=== PATIENT | female | born 1945 | race Caucasian/White ===

== ENCOUNTER 2021-09-02 16:24 | Inpatient (IN) ==
[2021-09-02] MEDS ORDERED: IOPAMIDOL 100 ML BOTTLE IV ONE (16:25)
[2021-09-02 18:33] LABS: Basophils # (Auto) 0.04 K/mcL (0.00-0.30); Basophils % (Auto) 0.4 % (0.0-2.0); Eosinophils # (Auto) 0.09 K/mcL (0.00-0.70); Eosinophils % (Auto) 0.8 % (0.0-7.0); Hematocrit 44.6 % (34.1-44.9); Lymphocytes # (Auto) 1.53 K/mcL (1.50-4.80); Mean Cell Volume 85.1 fL (80.0-100.0); Mean Corpuscular HGB Conc 33.6 g/dL (31.0-36.0); Mean Platelet Volume 10.8 fL (7.4-10.4); Monocytes # (Auto) 1.14 K/mcL (0.10-0.90); Monocytes % (Auto) 10.4 % (1.0-12.0); Neutrophils % (Auto) 74.4 % (38.0-78.0); Platelet Count 265 K/mcL (140-440); RBC 5.24 M/mcL (3.59-5.38); Red Cell Distribution Width 13.9 % (11.5-14.5); WBC 10.9 K/mcL (4.5-11.0)
[2021-09-02 18:53] LABS: ALT/SGPT 17 U/L (<40); AST/SGOT 21 U/L (<32); Albumin 4.1 gm/dL (3.2-5.2); Albumin/Globulin Ratio 1.3 (1.0-2.3); Alkaline Phosphatase 50 U/L (39-117); Bilirubin,Total 0.5 mg/dL (0.1-1.0); Blood Urea Nitrogen 15 mg/dL (8-23); Calcium 9.6 mg/dL (8.6-10.4); Carbon Dioxide 28 mmol/L (22-30); Chloride 95 mmol/L (96-108); Globulin 3.1 gm/dL (2.2-3.7); Glomerular Filtration Rate 62; Glucose 124 mg/dL (70-105)
--- NOTE | 2021-09-02 19:04 | Emergency Department Note ---
Abdominal Pain HPI <Darryn Alexander PA-C - Last Filed: 09/02/21 20:50> General Chief Complaint: Abdominal Pain Stated Complaint: abdominal pain Time Seen by Provider: 09/02/21 17:16 Source: patient Mode of arrival: ambulatory Limitations: no limitations History of Present Illness HPI Narrative: Narrative: 76-year-old female with a history of large abdominal hernia,, discitis, septicemia, DVT, PE, chronic anticoagulation with warfarin who presents the ER to be evaluated for abdominal pain associated with her large hernia. She states she was seen 10 years ago by a hernia specialist in [place] and was told that after she had discitis from a pelvic surgery that she is at high risk for any abdominal surgery for getting another infection. She states she is been taking her warfarin regularly. She says her abdominal pain has been worsening with activity over the last several days. She has been nauseous without vomiting. She last had a regular bowel movement today. She says she tends towards constipation but her bowel movement was regular today. Nothing is made her pain better or worse. Her hernia is large and sometimes self reduces but she states its been increasing in pain. Related Data Home Medications Medication Instructions Recorded Confirmed cholecalciferol (vitamin D3) 50 2,000 unit PO QDAY 08/29/15 09/02/21 mcg (2,000 unit) capsule d-mannose 500 mg capsule mg PO 08/27/21 08/27/21 Previous Rx's Medication Instructions Recorded cyanocobalamin (vitamin B-12) 1,000 mcg PO QDAY #30 tab 02/09/16 1,000 mcg tablet (Vitamin B-12) escitalopram oxalate 20 mg tablet 20 mg PO QDAY #90 tab 09/25/20 furosemide 20 mg tablet 20 mg PO QDAY #90 tab 10/24/20 potassium chloride 10 mEq 10 meq PO QDAY #90 cap 10/24/20 capsule,extended release bisoprolol 2.5 2 tab PO QDAY #180 tab 04/02/21 mg-hydrochlorothiazide 6.25 mg tablet amitriptyline 25 mg tablet 25 mg PO QHS #90 tab 05/15/21 propranolol 60 mg tablet 60 mg PO QDAY #90 tab 07/23/21 warfarin 5 mg tablet See Rx Instructions .ROUTE 07/23/21 .COMPLEX #100 tab Allergies Allergy/AdvReac Type Severity Reaction Status Date / Time Sulfa (Sulfonamide AdvReac Intermediate sulfa rash Verified 08/27/21 09:11 Antibiotics) tape Allergy Severe Blister Uncoded 08/27/21 09:11 Review of Systems <Darryn Alexander PA-C - Last Filed: 09/02/21 20:50> ROS ROS Narrative: Narrative: All systems ED: reviewed and negative except as stated. PFSH <Darryn Alexander PA-C - Last Filed: 09/02/21 20:50> Narrative Patient History Narrative: Narrative: Gen: No acute distress Eyes: PERRL, no conjunctival injection , and symmetrical lids. Sclerae non icteric HENMT: Normocephalic Atraumatic head, external nose and ears. Moist MM. CVS: +S1/S2, No murmurs or gallops. Radial pulses 2+ and equal bilat. bilateral lower extremity swelling RESP: Unlabored respiratory effort . Clear to auscultation bilaterally (CTAB). No noted wheezes rales or ronchi. GI: Large abdomen that soft and nontender in the upper quadrants, there is a midline surgical scar that is old and well-healed, lower quadrants have a large fold of adipose tissue when this is pulled up it reveals a softball sized hernia where you can feel peristalsis upon palpation it is not easily reduced. Patient has pain with deep palpation Skin: Warm, Dry . No rashes or lesions . Cap refill less than 2. Neuro: No focal neurological deficit Psych: Awake, Alert, & Oriented (AAO) x3. Appropriate mood and affect . Medical/Surgical/Family History All Active Problems (Updated 09/02/21 @ 20:50 by Darryn Alexander PA-C) Incarcerated hernia (Acute) SBO (small bowel obstruction) (Acute) Esophageal dysphagia (Acute) Medicare annual wellness visit, subsequent (Acute) URI (upper respiratory infection) (Acute) Acute lymphadenitis of neck (Acute) Supratherapeutic INR (Acute) Fatigue (Acute) Bilateral shoulder pain (Acute) Contusion of hand, right (Acute) Seasonal allergies (Chronic) Allergies (Chronic) Osteopenia (Chronic) Urinary tract bacterial infections (Chronic) Hoarse (Chronic) Chest pain (Chronic) CHF (congestive heart failure) (Chronic) GI bleed (Chronic) Anemia (Chronic) Dysphagia (Chronic) Cough (Chronic) Shortness of breath (Chronic) Heartburn (Chronic) Depression (Chronic) Deep vein thrombosis (Chronic) Poor short-term memory (Chronic) Recurrent urinary tract infection (Chronic) Arthritis of carpometacarpal joint (Chronic) Radial styloid tenosynovitis of left hand (Chronic) UTI (urinary tract infection) (Chronic) Urinary incontinence (Chronic) Exposure to TB (Chronic) Trochanteric bursitis of right hip (Chronic 12/05/13) Rectocele (Chronic) Rectal prolapse (Chronic) Pelvic relaxation (Chronic 09/29/14) 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) Obesity (Chronic) Lipoma (Chronic) Knee pain (Chronic 01/17/13) Joint pain (Chronic) Insomnia (Chronic) Hypertension, essential (Chronic) Hernia, ventral (Chronic) Headache (Chronic) Gallstones without obstruction of gallbladder (Chronic) Diverticulosis of colon (Chronic) DJD (degenerative joint disease) (Chronic) DVT (deep venous thrombosis) (Chronic) Cystocele (Chronic) Colon ulcer (Chronic) Cellulitis and abscess of trunk (Chronic 07/21/14) Atrophic vaginitis (Chronic) Abscess (Chronic 10/03/14) MCC current use of anticoagulant (Chronic 02/10/14) Medical History Abscess (10/03/14) Epidural abscess L5-S1 Acute deep vein thrombosis of right upper extremity Acute superficial venous thrombosis of right lower extremity Allergies Seasonal Start Claritin or Dyan once daily Anemia H/O Arthritis of carpometacarpal joint Atrophic vaginitis Cellulitis and abscess of trunk (07/21/14) Abdominal wall abcess Chest pain Like someone standing on lower chest CHF (congestive heart failure) HFpEF Colon ulcer (09/02/2014-Arvind) Cough Worse at nighttime Cystocele Deep vein thrombosis Multiple episodes Depression Discitis L5-S1 discitis and abscess. Resolved. Diverticulosis of colon DJD (degenerative joint disease) (01/05/14-Dr Pérez) Bilateral knees, Left wrist DVT (deep venous thrombosis) 09/2013 Right Postoperative Dysphagia feels like something sticks at the level of the sternal notch Exposure to TB (01/06/14-Dr Sullivan) Gallstones without obstruction of gallbladder (03/05/14-Dr Gus) GI bleed H/O. Remote. Headache Hematoma Right rectus abdominus Hematuria, gross Hernia, ventral Massive. No surgery. Reeducated on calling ambulance for acute severe pain or inability to pass gas or stool Recommend MiraLAX half a dose daily to keep stools soft and regular Increase fluid intake She also takes Colace daily Hypertension, essential Insomnia Joint pain (01/06/14-Dr Sullivan)Lower leg Knee pain (01/17/13) Status post total knee arthroplasty and revision arthroplasty. X-ray suggests the tibial component has loosened. Lipoma (01/06/14-Dr Sullivan)Right wrist MCC current use of anticoagulant (02/10/14) Warfarin Medicare annual wellness visit, initial Medicare annual wellness visit, subsequent Obesity BMI=42.6 Osteoarthrosis involving shoulder region Osteoarthrosis of ankle and foot Osteomyelitis, acute (10/03/14) L5-S1. Discitis. 09/19/14. Now likely resolved. Osteopenia Mild, T score -1.1 at left femoral neck. Continue vitamin D3, calcium, and daily weightbearing exercise. Other female genital prolapse (01/06/14-Dr Sullivan) Pelvic relaxation (09/29/14) Poor short-term memory Pulmonary emboli Remote Radial styloid tenosynovitis of left hand DeQuervain's Rash, skin Forearms Rectal prolapse (01/06/14-Dr Sullivan) Rectocele Recurrent urinary tract infection D-mannose daily has been very helpful Seasonal allergies Continue loratadine once daily Septicemia (10/03/14) Bacteroides fragilis 2014 Shortness of breath Skin ulcer Abdominal postop ulcer Squamous cell carcinoma of skin (01/06/14-Dr Sullivan) Trochanteric bursitis of right hip (12/05/13) Urinary incontinence Urinary tract bacterial infections H/O recurring Urticaria UTI (urinary tract infection) recurring Vaginal vault prolapse Surgical History Abnormal findings on esophagogastroduodenoscopy (EGD) 09/05/16-Schatzki ring & mild gastritis H/O colectomy for diverticular disease-sigmoid H/O colonoscopy (09/02/14) 09/02/2014-retention suture mid sigmoid colon removed 2011-HP/hemorrhoids Dr Villela H/O colostomy and reanastomosis For diverticular disease H/O hernia repair H/O knee surgery 2010 revision of right H/O laminectomy (10/03/14) L5-S1 laminectomy and drainage of epidural abscess H/O left breast biopsy H/O sigmoidoscopy (09/02/14) H/O: hysterectomy History of knee replacement procedure of right knee History of left knee replacement Hx of tonsillectomy Status post incision and drainage (10/18/13) Abcess 10/18/13 & 10/28/13 Status post surgery 09/2013 Wound infection Status post surgery (10/01/13) Colporrhaphy Posterior colporrhaphy and colposacropexy Status post surgical removal of malignant neoplasm of skin lower lip/SC Family History Sister Malignant neoplasm of breast Malignant neoplasm of colon Deep vein thrombosis of blood clot Malignant neoplasm of lung lung CA Mother Malignant neoplasm of colon Brother Malignant neoplasm of esophagus Leukemia Malignant neoplasm of lung brother had Black Lung disease Father Malignant neoplasm of lung father had "sleeping sickness" Social History Smoking Status: Former smoker Alcohol Intake Frequency: does not drink Substance Use: does not use Exam <Darryn Alexander PA-C - Last Filed: 09/02/21 20:50> Narrative Narrative: Narrative: General Limitations: no limitations Course <Darryn Alexander PA-C - Last Filed: 09/02/21 20:50> Vital Signs Vital signs: Vital Signs Temperature 36.5 C 09/02/21 16:25 Pulse Rate 73 09/02/21 16:25 Respiratory Rate 18 09/02/21 16:25 Blood Pressure 138/69 09/02/21 16:25 Pulse Oximetry (%) 93 09/02/21 16:25 Temperature 36.5 C 09/02/21 16:25 Pulse Rate 64 09/02/21 21:11 Respiratory Rate 18 09/02/21 16:25 Blood Pressure 126/89 09/02/21 19:01 Pulse Oximetry (%) 96 09/02/21 21:11 MDM <Darryn Alexander PA-C - Last Filed: 09/02/21 20:50> MDM Narrative Medical decision making narrative: Narrative: Patient has a large known hernia that is not easily reducible and is painful. She will be evaluated with CBC, CMP, lipase, UA and will be evaluated with a CT scan of the abdomen pelvis with contrast. CBC: Unremarkable CMP: Unremarkable Lipase: Normal UA: Squamous cell contamination, not suggestive of UTI CT abdomen pelvis: Small bowel obstruction with incarcerated hernia containing fat and small bowel. Dr Singh general surgeon: Admit to Hospitalist with Dr Singh Consulting, Stop warfarin, Bowel rest, NG tube. Hospitalist: Dr Groves graciously agreed to come down to evaluate the patient for admission. Lab Data Result diagrams: 09/02/21 18:02 09/02/21 18:02 Labs: Lab Results 09/02/21 09/02/21 09/02/21 Range/Units 18:02 18:02 18:35 WBC 10.9 (4.5-11.0) K/mcL RBC 5.24 (3.59-5.38) M/mcL Hgb 15.0 (11.2-15.7) g/dL Hct 44.6 (34.1-44.9) % MCV 85.1 (80.0-100.0) fL MCH 28.6 (26.0-34.0) pg MCHC 33.6 (31.0-36.0) g/dL RDW 13.9 (11.5-14.5) % Plt Count 265 (140-440) K/mcL MPV 10.8 H (7.4-10.4) fL Neut % (Auto) 74.4 (38.0-78.0) % Lymph % (Auto) 14.0 L (15.5-49.0) % [place] % (Auto) 10.4 (1.0-12.0) % Eos % (Auto) 0.8 (0.0-7.0) % Baso % (Auto) 0.4 (0.0-2.0) % Lymph # (Auto) 1.53 (1.50-4.80) K/mcL [place] # (Auto) 1.14 H (0.10-0.90) K/mcL Eos # (Auto) 0.09 (0.00-0.70) K/mcL Baso # (Auto) 0.04 (0.00-0.30) K/mcL Absolute Neutrophils 8.12 H (1.80-8.00) K/mcL Sodium 136 (133-145) mmol/L Potassium 3.7 (3.3-5.1) mmol/L Chloride 95 L (96-108) mmol/L Carbon Dioxide 28 (22-30) mmol/L Anion Gap 13.0 (8.0-16.0) BUN 15 (8-23) mg/dL Creatinine 0.9 (0.6-1.1) mg/dL GFR Calculation 62 Glucose 124 H (70-105) mg/dL Calcium 9.6 (8.6-10.4) mg/dL Total Bilirubin 0.5 (0.1-1.0) mg/dL AST 21 (<32) U/L ALT 17 (<40) U/L Alkaline Phosphatase 50 (39-117) U/L Total Protein 7.2 (5.9-8.4) gm/dL Albumin 4.1 (3.2-5.2) gm/dL Globulin 3.1 (2.2-3.7) gm/dL Albumin/Globulin Ratio 1.3 (1.0-2.3) Lipase 22 (7-60) U/L Urine Color [place] Urine Appearance Hazy A (Clear) Urine pH 5.0 (5.0-9.0) Ur Specific [place] 1.024 (1.000-1.035) Urine Protein Negative (Negative) mg/dL Urine Glucose (UA) Negative (Negative) mg/dL Urine Ketones Negative (Negative) mg/dL Urine Occult Blood Negative (Negative) mg/dL Urine Nitrate Negative (Negative) Urine Bilirubin Negative (Negative) mg/dL Urine Urobilinogen 2.0 A mg/dL Ur Leukocyte Esterase 25 A (Negative) /uL Urine RBC 3 (0-3) /hpf Urine WBC 4 (0-4) /hpf Ur Squamous Epith Cells 5 H (0-4) /hpf Urine Bacteria None (0) /hpf Urine Mucus Few A (None) /hpf Ur Culture Indicated? No Discharge Plan Patient/Caregiver Discharge Instructions Pt seen by [facility]LL[facility] OPERATOR/PA only: No Clinical Impression: Incarcerated hernia, SBO (small bowel obstruction) Patient Disposition: Xfer As Inpt ([facility]) Discharge Date/Time: 09/02/21 21:20
[2021-09-02 19:59] LABS: Appearance,Urine HAZY (Clear); Bilirubin,Urine Negative (Negative); Color,Urine AMBER; Culture Indicated,Urine No; Glucose,Urine (UA) Negative (Negative); Ketones,Urine Negative (Negative); Leukocyte Esterase,Urine 25 /uL (Negative); Mucus,Urine FEW /hpf; Nitrate,Urine Negative (Negative); Protein,Urine Negative (Negative); Specific Gravity,Urine 1.024 (1.000-1.035); Urine Blood Negative (Negative); Urine RBC 3 /hpf (0-3); Urine Squamous Epithelial Cell 5 /hpf (0-4); Urine WBC 4 /hpf (0-4)
--- NOTE | 2021-09-02 21:13 | Internal Med History&Physical ---
HPI History of Present Illness Patient information: Note initiated : 09/02/21 at 9:06 pm Service Date, if different from initiated Date: [as above] Patient: Maisha Mooney a 76 y/o F admitted on for abdominal pain. Chief Complaint: [abdominal pain] Chief complaint: Abdominal pain History of present illness: Ms. 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 The patient states that her abdominal pain progressively worsened over the last several days. She has been nauseous but has not had an episode of emesis. Her last bowel movement was today. She decided to come to the ER for further management and evaluation. On presentation she was hemodynamically stable and afebrile. The patient was found to have a large incarcerated hernia which was unable to be reduced in the ER. General surgery were consulted to admit the patient. The hospitalist service was asked to comanage in consult. Review of Systems All systems: reviewed and no additional remarkable complaints except as stated Constitutional Constitutional: Present as per HPI EENT Eyes: Present as per HPI; Absent blurry vision Cardiovascular Cardiovascular: Present as per HPI; Absent chest pain, dyspnea, dyspnea on exertion, leg edema or palpatations Respiratory Respiratory: Present as per HPI; Absent cough, dyspnea, dyspnea on exertion, wheezing or stridor Gastrointestinal Gastrointestinal: Present as per HPI and abdominal pain; Absent diarrhea, dysphagia, hematemesis, melena, nausea or vomiting Musculoskeletal Musculoskeletal: Present as per HPI; Absent joint swelling, limited range of motion, muscle cramps, muscle weakness or myalgias Integumentary Integumentary: Present as per HPI; Absent erythema, new lesions, rash or wounds Neurological Neurological: Present as per HPI; Absent abnormal gait, behavioral changes, focal weakness, headache(s), loss of vision, numbness, sensory deficit or syncope Endocrine Endocrine: Absent change in body appearance, fatigue or heat intolerance Hematologic/Lymphatic Hematologic/Lymphatic: Present as per HPI PFSH PFSH All Active Problems (Updated 09/02/21 @ 20:50 by Darryn Alexander PA-C) Incarcerated hernia (Acute) SBO (small bowel obstruction) (Acute) Esophageal dysphagia (Acute) Medicare annual wellness visit, subsequent (Acute) URI (upper respiratory infection) (Acute) Acute lymphadenitis of neck (Acute) Supratherapeutic INR (Acute) Fatigue (Acute) Bilateral shoulder pain (Acute) Contusion of hand, right (Acute) Seasonal allergies (Chronic) Allergies (Chronic) Osteopenia (Chronic) Urinary tract bacterial infections (Chronic) Hoarse (Chronic) Chest pain (Chronic) CHF (congestive heart failure) (Chronic) GI bleed (Chronic) Anemia (Chronic) Dysphagia (Chronic) Cough (Chronic) Shortness of breath (Chronic) Heartburn (Chronic) Depression (Chronic) Deep vein thrombosis (Chronic) Poor short-term memory (Chronic) Recurrent urinary tract infection (Chronic) Arthritis of carpometacarpal joint (Chronic) Radial styloid tenosynovitis of left hand (Chronic) UTI (urinary tract infection) (Chronic) Urinary incontinence (Chronic) Exposure to TB (Chronic) Trochanteric bursitis of right hip (Chronic 12/05/13) Rectocele (Chronic) Rectal prolapse (Chronic) Pelvic relaxation (Chronic 09/29/14) 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) Obesity (Chronic) Lipoma (Chronic) Knee pain (Chronic 01/17/13) Joint pain (Chronic) Insomnia (Chronic) Hypertension, essential (Chronic) Hernia, ventral (Chronic) Headache (Chronic) Gallstones without obstruction of gallbladder (Chronic) Diverticulosis of colon (Chronic) DJD (degenerative joint disease) (Chronic) DVT (deep venous thrombosis) (Chronic) Cystocele (Chronic) Colon ulcer (Chronic) Cellulitis and abscess of trunk (Chronic 07/21/14) Atrophic vaginitis (Chronic) Abscess (Chronic 10/03/14) residential current use of anticoagulant (Chronic 02/10/14) Medical History Abscess (10/03/14) Epidural abscess L5-S1 Acute deep vein thrombosis of right upper extremity Acute superficial venous thrombosis of right lower extremity Allergies Seasonal Start Claritin or Dyan once daily Anemia H/O Arthritis of carpometacarpal joint Atrophic vaginitis Cellulitis and abscess of trunk (07/21/14) Abdominal wall abcess Chest pain Like someone standing on lower chest CHF (congestive heart failure) HFpEF Colon ulcer (09/02/2014-Arvind) Cough Worse at nighttime Cystocele Deep vein thrombosis Multiple episodes Depression Discitis L5-S1 discitis and abscess. Resolved. Diverticulosis of colon DJD (degenerative joint disease) (01/05/14-Dr Pérez) Bilateral knees, Left wrist DVT (deep venous thrombosis) 09/2013 Right Postoperative Dysphagia feels like something sticks at the level of the sternal notch Exposure to TB (01/06/14-Dr Sullivan) Gallstones without obstruction of gallbladder (03/05/14-Dr Weber) GI bleed H/O. Remote. Headache Hematoma Right rectus abdominus Hematuria, gross Hernia, ventral Massive. No surgery. Reeducated on calling ambulance for acute severe pain or inability to pass gas or stool Recommend MiraLAX half a dose daily to keep stools soft and regular Increase fluid intake She also takes Colace daily Hypertension, essential Insomnia Joint pain (01/06/14-Dr Sullivan)Lower leg Knee pain (01/17/13) Status post total knee arthroplasty and revision arthroplasty. X-ray suggests the tibial component has loosened. Lipoma (01/06/14-Dr Sullivan)Right wrist residential current use of anticoagulant (02/10/14) Warfarin Medicare annual wellness visit, initial Medicare annual wellness visit, subsequent Obesity BMI=42.6 Osteoarthrosis involving shoulder region Osteoarthrosis of ankle and foot Osteomyelitis, acute (10/03/14) L5-S1. Discitis. 09/19/14. Now likely resolved. Osteopenia Mild, T score -1.1 at left femoral neck. Continue vitamin D3, calcium, and daily weightbearing exercise. Other female genital prolapse (01/06/14-Dr Sullivan) Pelvic relaxation (09/29/14) Poor short-term memory Pulmonary emboli Remote Radial styloid tenosynovitis of left hand DeQuervain's Rash, skin Forearms Rectal prolapse (01/06/14-Dr Sullivan) Rectocele Recurrent urinary tract infection D-mannose daily has been very helpful Seasonal allergies Continue loratadine once daily Septicemia (10/03/14) Bacteroides fragilis 2015 Shortness of breath Skin ulcer Abdominal postop ulcer Squamous cell carcinoma of skin (01/06/14-Dr Sullivan) Trochanteric bursitis of right hip (12/05/13) Urinary incontinence Urinary tract bacterial infections H/O recurring Urticaria UTI (urinary tract infection) recurring Vaginal vault prolapse Surgical History Abnormal findings on esophagogastroduodenoscopy (EGD) 09/05/16-Schatzki ring & mild gastritis H/O colectomy for diverticular disease-sigmoid H/O colonoscopy (09/02/14) 09/02/2014-retention suture mid sigmoid colon removed 2011-HP/hemorrhoids Dr Villela H/O colostomy and reanastomosis For diverticular disease H/O hernia repair H/O knee surgery 2010 revision of right H/O laminectomy (10/03/14) L5-S1 laminectomy and drainage of epidural abscess H/O left breast biopsy H/O sigmoidoscopy (09/02/14) H/O: hysterectomy History of knee replacement procedure of right knee History of left knee replacement Hx of tonsillectomy Status post incision and drainage (10/18/13) Abcess 10/18/13 & 10/28/13 Status post surgery 09/2013 Wound infection Status post surgery (10/01/13) Colporrhaphy Posterior colporrhaphy and colposacropexy Status post surgical removal of malignant neoplasm of skin lower lip/SC Family History Sister Malignant neoplasm of breast Malignant neoplasm of colon Deep vein thrombosis of blood clot Malignant neoplasm of lung lung CA Mother Malignant neoplasm of colon Brother Malignant neoplasm of esophagus Leukemia Malignant neoplasm of lung brother had Black Lung disease Father Malignant neoplasm of lung father had "sleeping sickness" Social History household members: spouse housing: house lives independently: Yes marital status: education level: high school occupational status: retired other: Children-4 Grandchildren- smoking status: Former smoker alcohol intake frequency: does not drink substance use type: does not use MEDS/ALLERGIES Home Medications and Allergies Home Medications Medication Instructions Recorded Confirmed Type cholecalciferol (vitamin D3) 50 2,000 unit PO QDAY 08/29/15 09/02/21 History mcg (2,000 unit) capsule cyanocobalamin (vitamin B-12) 1,000 mcg PO QDAY #30 tab 02/09/16 09/02/21 Rx 1,000 mcg tablet (Vitamin B-12) escitalopram oxalate 20 mg tablet 20 mg PO QDAY #90 tab 09/25/20 09/02/21 Rx furosemide 20 mg tablet 20 mg PO QDAY #90 tab 10/24/20 09/02/21 Rx potassium chloride 10 mEq 10 meq PO QDAY #90 cap 10/24/20 09/02/21 Rx capsule,extended release bisoprolol 2.5 2 tab PO QDAY #180 tab 04/02/21 09/02/21 Rx mg-hydrochlorothiazide 6.25 mg tablet amitriptyline 25 mg tablet 25 mg PO QHS #90 tab 05/15/21 09/02/21 Rx propranolol 60 mg tablet 60 mg PO QDAY #90 tab 07/23/21 09/02/21 Rx warfarin 5 mg tablet See Rx Instructions .ROUTE 07/23/21 09/02/21 Rx .COMPLEX #100 tab d-mannose 500 mg capsule mg PO 08/27/21 08/27/21 History Allergies Allergy/AdvReac Type Severity Reaction Status Date / Time Sulfa (Sulfonamide AdvReac Intermediate sulfa rash Verified 08/27/21 09:11 Antibiotics) tape Allergy Severe Blister Uncoded 08/27/21 09:11 EXAM Constitutional Vitals: Temp Pulse Resp BP Pulse Ox 97.7 F 65 18 126/89 98 09/02/21 16:25 09/02/21 20:31 09/02/21 16:25 09/02/21 19:01 09/02/21 20:31 General appearance: morbidly obese Head Head exam: Present atraumatic, normal inspection and normocephalic Eye Eye exam: Present EOMI, normal appearance and PERRL; Absent conjunctival injection ENT ENT exam: Present normal exam; Absent mucous membranes dry Neck Neck exam: Present full ROM; Absent lymphadenopathy Respiratory Respiratory exam: Present normal respiratory exam and CTAB; Absent decreased breath sounds, respiratory distress or wheezes Cardiovascular Cardiovascular exam: Present normal rate and rhythm and RRR; Absent JVD GI/Abdominal GI/Abdominal exam: Present soft, distended and hypoactive bowel sounds; Absent normal bowel sounds, diminished bowel sounds, guarding, mass, rebound or tenderness Neurological Exam Neurological exam: Present alert, CN II-XII intact and oriented X3 Psychiatric Psychiatric exam: Present normal affect and normal mood Skin Skin exam: Present intact and warm; Absent erythema, pallor, petechiae or rash DATA Data Completed and Pending Labs: Labs from last 24 hours 09/02/21 09/02/21 09/02/21 18:35 18:02 18:02 WBC 10.9 RBC 5.24 Hgb 15.0 Hct 44.6 MCV 85.1 MCH 28.6 MCHC 33.6 RDW 13.9 Plt Count 265 MPV 10.8 H Neut % (Auto) 74.4 Lymph % (Auto) 14.0 L [place] % (Auto) 10.4 Eos % (Auto) 0.8 Baso % (Auto) 0.4 Lymph # (Auto) 1.53 [place] # (Auto) 1.14 H Eos # (Auto) 0.09 Baso # (Auto) 0.04 Absolute Neutrophils 8.12 H Sodium 136 Potassium 3.7 Chloride 95 L Carbon Dioxide 28 Anion Gap 13.0 BUN 15 Creatinine 0.9 GFR Calculation 62 Glucose 124 H Calcium 9.6 Total Bilirubin 0.5 AST 21 ALT 17 Alkaline Phosphatase 50 Total Protein 7.2 Albumin 4.1 Globulin 3.1 Albumin/Globulin Ratio 1.3 Lipase 22 Urine Color [place] Urine Appearance Hazy A Urine pH 5.0 Ur Specific [place] 1.024 Urine Protein Negative Urine Glucose (UA) Negative Urine Ketones Negative Urine Occult Blood Negative Urine Nitrate Negative Urine Bilirubin Negative Urine Urobilinogen 2.0 A Ur Leukocyte Esterase 25 A Urine RBC 3 Urine WBC 4 Ur Squamous Epith Cells 5 H Urine Bacteria None Urine Mucus Few A Ur Culture Indicated? No A/P Assessment and plan (1) Incarcerated hernia: Status: Acute (2) SBO (small bowel obstruction): Status: Acute (3) CHF (congestive heart failure): Status: Chronic Comment: HFpEF Qualifiers: Heart failure type: unspecified Heart failure chronicity: unspecified Qualified Code(s): I50.9 - Heart failure, unspecified (4) Vaginal erosion due to surgical mesh: Status: Resolved Comment: Recent repair at [facility] Qualifiers: Encounter type: subsequent encounter Qualified Code(s): T83.711D - Erosion of implanted vaginal mesh to surrounding organ or tissue, subsequent encounter (5) Obesity: Status: Chronic Comment: BMI=42.6 Qualifiers: Obesity type: due to excess calories Obesity classification: adult class 3 (BMI >= 40) Serious obesity comorbidity presence: with serious comorbidity Body mass index: BMI 40.0-44.9 Qualified Code(s): E66.09 - Other obesity due to excess calories (6) Hypertension, essential: Status: Chronic Narrative A/P Narrative: #Hx of VTE -Hold home coumadin, and start lovenox 1mg/kg/bid SC #HTN -Will hold home lasix, isoprolol-HCTZ, and propranolol #SBO -mx as per genSx #FEN -NS 100cc/h, monitor and replete lytes, NPO #DVT ppx -therapeutic dosing LMWH #Full code Time Spent With Patient Time: Total time spent is greater than 50% in coordination of care (as documented) at patient's floor/unit and/or counseling patient: Total time spent with greater than 50% in coordination of care (as documented) at patient's floor/unit and/or counseling patient:: 50 - 70 minutes QUALITY Stroke Symptom Onset Unknown: No
[2021-09-02] MEDS ORDERED: morphine 4 MG/ML VIAL IV PRN (21:25)
[2021-09-02] MEDS ORDERED: ENOXAPARIN 100 MG/ML SYRINGE ONE (23:08)
[2021-09-02] MEDS: ENOXAPARIN 100 MG/ML SYRINGE SQ SCH (23:23)
[2021-09-02] MEDS: 0.9 % SODIUM CHLORIDE 1,000 ML IV SCH ×2 (23:24→23:50)
[2021-09-02] MEDS: ONDANSETRON 4 MG/2 ML VIAL IV PRN (23:45)
[2021-09-02] MEDS ORDERED: ONDANSETRON 4 MG/2 ML VIAL ONE (23:45)
[2021-09-02] MEDS: DOCUSATE SODIUM 100 MG CAPSULE PO SCH (23:50)
[2021-09-02] MEDS: 0.9 % SODIUM CHLORIDE 10 ML SYRINGE IV SCH (23:50)
[2021-09-02] MEDS: SENNOSIDES 1 TABLET PO SCH (23:50)
[2021-09-03] MEDS: 0.9 % SODIUM CHLORIDE 1,000 ML IV SCH ×3 (03:57→20:11)
[2021-09-03] MEDS: 0.9 % SODIUM CHLORIDE 10 ML SYRINGE IV SCH ×3 (04:17→20:13)
[2021-09-03 06:02] LABS: Basophils # (Auto) 0.03 K/mcL (0.00-0.30); Basophils % (Auto) 0.4 % (0.0-2.0); Eosinophils # (Auto) 0.09 K/mcL (0.00-0.70); Eosinophils % (Auto) 1.3 % (0.0-7.0); Hematocrit 42.1 % (34.1-44.9); Hemoglobin 13.7 g/dL (11.2-15.7); Lymphocytes # (Auto) 1.53 K/mcL (1.50-4.80); Lymphocytes % (Auto) 21.5 % (15.5-49.0); Mean Cell Volume 85.4 fL (80.0-100.0); Mean Corpuscular HGB Conc 32.5 g/dL (31.0-36.0); Mean Platelet Volume 11.3 fL (7.4-10.4); Monocytes # (Auto) 1.21 K/mcL (0.10-0.90); Neutrophils % (Auto) 59.8 % (38.0-78.0); Platelet Count 254 K/mcL (140-440); RBC 4.93 M/mcL (3.59-5.38); WBC 7.1 K/mcL (4.5-11.0)
[2021-09-03 06:20] LABS: Blood Urea Nitrogen 18 mg/dL (8-23); Calcium 8.6 mg/dL (8.6-10.4); Carbon Dioxide 29 mmol/L (22-30); Chloride 98 mmol/L (96-108); Glomerular Filtration Rate 72; Glucose 121 mg/dL (70-105)
--- NOTE | 2021-09-03 08:17 | XRay Report ---
CLINICAL INFORMATION: Follow-up bowel obstruction due to incarcerated anterior wall hernia COMPARISON: 09/04/2014 and abdomen and pelvic CT 2021 FINDINGS: Multiple loops of moderately dilated proximal and small bowel to the anterior abdominal wall incarcerated hernia level appreciated. The distal small bowel and colon are incompletely decompressed. No free air. IV contrast is seen within the urinary bladder which is grossly normal. IMPRESSION: No change in moderate mid small bowel obstruction pattern Interpreted and Authenticated by: James Zabala 09/03/21
[2021-09-03] MEDS: DOCUSATE SODIUM 100 MG CAPSULE PO SCH ×2 (08:32→20:13)
[2021-09-03] MEDS: ENOXAPARIN 100 MG/ML SYRINGE SQ SCH ×2 (08:37→20:12)
--- NOTE | 2021-09-03 08:53 | Internal Med Progress Note ---
SUBJECTIVE Subjective Patient information: Note initiated : 09/03/21 at 8:50 am Service Date, if different from initiated Date: [as above] Patient: Maisha Mooney 76 y/o F admitted on 09/02/21 for abdominal pain. Chief Complaint: [] Principal diagnosis: Abdominal pain Interval history: The patient was resting comfortably in bed. She denies any abdominal pain, nausea. RN was present at the bedside as was the . There was minimal output from the NG tube. She is passing gas. We will touch base with the [facility] surgery attending today. Constitutional Vitals: Vital Signs Temp Pulse Resp BP Pulse Ox 98 F 68 17 133/73 91 09/03/21 07:01 09/03/21 07:01 09/03/21 07:01 09/03/21 07:01 09/03/21 07:01 Period Temp Pulse Resp BP Sys/[place] Pulse Ox Last 24 Hr 97.7 F-98 F 63-73 16-18 126-184/69-92 91-98 Intake and Output 09/02/21 09/03/21 09/03/21 21:59 05:59 13:59 Intake Total 923 Output Total 30 Balance -30 923 Weight 113.398 kg Intake & Output: Intake & Output 09/02/21 09/03/21 09/03/21 21:59 05:59 13:59 Intake Total 923 Output Total 30 Balance -30 923 Weight 113.398 kg Intake: IV 923 Sodium Chloride 0.9% 1,000 ml @ 923 100 mls/hr IV .Q10H GRETEL Rx#: [id number] Output: Gastric Drainage 30 Left Nare NG/OG 30 Other: Urine Appearance Clear Urine Color Bright Yellow # Voids 2 Head Head exam: Present atraumatic and normal inspection Eye Eye exam: Present normal appearance ENT ENT exam: Present mucous membranes moist, normal exam and normal external ear exam Neck Neck exam: Present normal inspection Respiratory Respiratory exam: Present normal respiratory exam Cardiovascular Cardiovascular exam: Present normal rate and rhythm GI/Abdominal GI/Abdominal exam: Present soft and distended; Absent normal bowel sounds Back Exam Back exam: Present normal inspection Neurological Exam Neurological exam: Present alert and oriented X3 Skin Skin exam: Present intact and warm OBJ DATA Labs CBC & Chem 7: 09/03/21 05:06 09/03/21 05:06 Labs: Abnormal Lab Results 09/03/21 09/03/21 09/02/21 05:06 05:06 18:35 MPV 11.3 H Lymph % (Auto) [place] % (Auto) 17.0 H [place] # (Auto) 1.21 H Absolute Neutrophils Chloride Glucose 121 H Urine Appearance Hazy A Urine Urobilinogen 2.0 A Ur Leukocyte Esterase 25 A Ur Squamous Epith Cells 5 H Urine Mucus Few A 09/02/21 09/02/21 18:02 18:02 MPV 10.8 H Lymph % (Auto) 14.0 L [place] % (Auto) [place] # (Auto) 1.14 H Absolute Neutrophils 8.12 H Chloride 95 L Glucose 124 H Urine Appearance Urine Urobilinogen Ur Leukocyte Esterase Ur Squamous Epith Cells Urine Mucus Meds: Medications Docusate Sodium (Docusate Sodium 100 Mg Capsule) 100 mg PO BID [facility] Last Admin: 09/03/21 08:32 Dose: Not Given Documented by: Enoxaparin Sodium (Enoxaparin 100 Mg/Ml Syringe) 100 mg SQ BID [facility] Last Admin: 09/03/21 08:37 Dose: 100 mg Documented by: Sodium Chloride (Sodium Chloride 0.9%) 1,000 mls @ 100 mls/hr IV .Q10H [facility] Last Admin: 09/03/21 08:38 Dose: 100 mls/hr Documented by: Morphine Sulfate (Morphine 4 Mg/Ml Vial) 2 mg IV Q4HP PRN; Protocol PRN Reason: Per Pain Protocol Ondansetron HCl (Ondansetron 4 Mg/2 Ml Vial) 4 mg IV Q6HP PRN PRN Reason: Nausea And Vomiting Last Admin: 09/02/21 23:45 Dose: 4 mg Documented by: Senna (Sennosides 1 Tablet) 2 tab PO HS [facility] Last Admin: 09/02/21 23:50 Dose: Not Given Documented by: Sodium Chloride (0.9 % Sodium Chloride 10 Ml Syringe) 10 ml IV Q8 [facility] Last Admin: 09/03/21 04:17 Dose: Not Given Documented by: A/P Assessment and plan (1) Incarcerated hernia: Status: Acute (2) SBO (small bowel obstruction): Status: Acute (3) CHF (congestive heart failure): Status: Chronic Comment: HFpEF Qualifiers: Heart failure type: unspecified Heart failure chronicity: unspecified Qualified Code(s): I50.9 - Heart failure, unspecified (4) Vaginal erosion due to surgical mesh: Status: Resolved Comment: Recent repair at [facility] Qualifiers: Encounter type: subsequent encounter Qualified Code(s): T83.711D - Erosion of implanted vaginal mesh to surrounding organ or tissue, subsequent encounter (5) Obesity: Status: Chronic Comment: BMI=42.6 Qualifiers: Obesity type: due to excess calories Obesity classification: adult class 3 (BMI >= 40) Serious obesity comorbidity presence: with serious comorbidity Body mass index: BMI 40.0-44.9 Qualified Code(s): E66.09 - Other obesity due to excess calories (6) Hypertension, essential: Status: Chronic Narrative A/P Narrative: #Hx of VTE -Hold home coumadin, and start lovenox 1mg/kg/bid SC #HTN -Will hold home lasix, isoprolol-HCTZ, and propranolol #SBO -mx as per genSx #FEN -NS 100cc/h, monitor and replete lytes, NPO #DVT ppx -therapeutic dosing LMWH #Full code Time Spent With Patient Time: Total time spent is greater than 50% in coordination of care (as documented) at patient's floor/unit and/or counseling patient: Total time spent with greater than 50% in coordination of care (as documented) at patient's floor/unit and/or counseling patient:: 25 - 35 minutes QUALITY Stroke Symptom Onset Unknown: No VTE Deep Vein Thrombosis/Pulmonary Embolism Present on Admission: No
--- NOTE | 2021-09-03 08:58 | Cat Scan Report ---
CLINICAL INFORMATION: Abdominal pain and distention COMPARISON: Abdomen and pelvic CT 08/13/2017 TECHNIQUE: Following enteric contrast, 80 cc of Isovue-370 were injected intravenously, and 60 seconds later, 0.625 mm helical slices were obtained from the mid heart through the subtrochanteric regions. Following reconstruction, 2.5 mm sagittal, coronal and axial reformatted images were processed and reviewed at bone, lung and soft tissue windows. Five minutes later, 0.625 mm helical slices were obtained from the mid heart through the kidneys and viewed at soft tissue windows.The exam was performed using radiation dose optimization techniques including, but not limited to, automated exposure control, adjustment of the mA and/or kV according to patient size and use of iterative reconstruction technique. FINDINGS: The lung bases show minimal fibrosis in the medial basilar segment of the left lower lobe which is stable.. No effusions. The visualized heart is grossly normal. Abdominal images show mild fatty changes within the liver. No focal hepatic lesion. The gallbladder and bile ducts, both kidneys, adrenal glands, spleen, pancreas and aorta, including aortic branches, are normal in size, configuration and attenuation without focal lesion. There is no free air, free fluid or adenopathy. Pelvic images show normal urinary bladder. Hysterectomy and oophorectomy changes noted. There are two large broad mouth adjacent hernias the lower anterior abdominal wall: the larger more superior hernia is 18 cm and the adjacent more inferior is 13 cm. These show slight enlargement from the 2018 comparison exam. The hernia sac contains multiple loops of small bowel and mesenteric fat. There is a high-grade partial small bowel obstruction with two points of transition best seen on sagittal reformatted images. One is on image 111 and the second is on image 94. These appear to represent areas of adhesion or stricture rather than due to small bowel incarceration by the hernia. There is no interloop fluid suggest third spacing and no free air. The distal small bowel is markedly compressed. There is only modest residual colonic stool. Partial sigmoidectomy changes noted with surgical clips in the mid sigmoid. Bone windows show L5-S1 laminectomy changes. No focal osseous lesions. IMPRESSION: 1. Two large adjacent broad mouth hernias is the lower anterior abdominal wall. These show slight increase in size from remote CT over four years ago. Each hernia sac contains a few loops of small bowel and mesentery. There is a high-grade partial small bowel obstruction with two points of transition identified. Suspect these are due to adhesions or strictures rather than due to small bowel incarceration at hernia site. There is no evidence of free air or free fluid to suggest third spacing Interpreted and Authenticated by: James Zabala 09/03/21
[2021-09-03] MEDS: ONDANSETRON 4 MG/2 ML VIAL IV PRN (14:14)
--- NOTE | 2021-09-03 16:18 | General Surgery Consult Note ---
HPI Data of Consult Patient: new to practice Consult date: 09/03/21 Requesting physician: Karla Groves Primary Care Provider: James Roberts DO Consult Narrative Chief complaint: Abdominal pain with nausea Reason for consult: Partial small bowel obstruction History of present illness: 76-year-old female who was admitted late last evening with complaint of increasing abdominal pain due to a known incisional hernia. The patient has had incisional hernia for many years. She has not had any episodes of partial ob struction in the past. She has a 3 to 4-day history of crampy abdominal pain with some distention of her lower abdomen. She had nausea but no vomiting. She was seen in the emergency room where CT shows 2 large wide neck fascial defects with partial obstruction and 2 areas that appear to be unassociated with the actual hernia. She has dilated loops of small bowel with decompressed distal bowel and colon. She states that she had her last bowel movement on yesterday and she also states that she has some flatus earlier today. She no longer has nausea. She has been on nasogastric decompression and states that her abdominal discomfort is significantly improved. Abdominal x-rays performed earlier today does not show any significant change in the dilated loops of bowel. cc:: CC: Karla Groves MD Constitutional Constitutional: Present fatigue, malaise and weight gain EENT Eyes: Present blurry vision; Absent loss of vision or other visual disturbances Ears: Present decreased hearing Nose, mouth and throat: Absent hoarseness, neck pain, sinus pressure or throat swelling Cardiovascular Cardiovascular: Present dyspnea on exertion and leg edema; Absent chest pain with activity, rapid heart rate or syncope Respiratory Respiratory: Absent cough, wheezing, chest congestion or pain with cough Gastrointestinal Gastrointestinal: Present abdominal pain, belching, cramping, dyspepsia, heartburn and nausea; Absent change in bowel habits, change in stool character, melena or vomiting Genitourinary Genitourinary: Present urinary frequency and urinary incontinence Musculoskeletal Musculoskeletal: Present arthralgias, joint swelling, muscle cramps, myalgias, numbness, radiating pain into limb and stiffness Integumentary Integumentary: Absent changing lesions Neurological Neurological: Present abnormal hearing; Absent headache(s), numbness, tremor(s) or vertigo Psychiatric Psychiatric: Absent behavioral changes, depression, memory loss or mood swings Hematologic/Lymphatic Hematologic/Lymphatic: Present other (Chronic anticoagulant therapy); Absent easy bleeding, easy bruising or lymphadenopathy Allergic/Immunologic Allergic/Immunologic: Absent tongue swelling, throat swelling, uticaria, wheezing or lip swelling PFSH PFSH All Active Problems (Updated 09/03/21 @ 16:31 by Israel Singh MD) Partial small bowel obstruction (Acute) Incarcerated hernia (Acute) SBO (small bowel obstruction) (Acute) Esophageal dysphagia (Acute) Medicare annual wellness visit, subsequent (Acute) URI (upper respiratory infection) (Acute) Acute lymphadenitis of neck (Acute) Supratherapeutic INR (Acute) Fatigue (Acute) Bilateral shoulder pain (Acute) Contusion of hand, right (Acute) Seasonal allergies (Chronic) Allergies (Chronic) Osteopenia (Chronic) Urinary tract bacterial infections (Chronic) Hoarse (Chronic) Chest pain (Chronic) CHF (congestive heart failure) (Chronic) GI bleed (Chronic) Anemia (Chronic) Dysphagia (Chronic) Cough (Chronic) Shortness of breath (Chronic) Heartburn (Chronic) Depression (Chronic) Deep vein thrombosis (Chronic) Poor short-term memory (Chronic) Recurrent urinary tract infection (Chronic) Arthritis of carpometacarpal joint (Chronic) Radial styloid tenosynovitis of left hand (Chronic) UTI (urinary tract infection) (Chronic) Urinary incontinence (Chronic) Exposure to TB (Chronic) Trochanteric bursitis of right hip (Chronic 12/05/13) Rectocele (Chronic) Rectal prolapse (Chronic) Pelvic relaxation (Chronic 09/29/14) 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) Obesity (Chronic) Lipoma (Chronic) Knee pain (Chronic 01/17/13) Joint pain (Chronic) Insomnia (Chronic) Hypertension, essential (Chronic) Hernia, ventral (Chronic) Headache (Chronic) Gallstones without obstruction of gallbladder (Chronic) Diverticulosis of colon (Chronic) DJD (degenerative joint disease) (Chronic) DVT (deep venous thrombosis) (Chronic) Cystocele (Chronic) Colon ulcer (Chronic) Cellulitis and abscess of trunk (Chronic 07/21/14) Atrophic vaginitis (Chronic) Abscess (Chronic 10/03/14) jail current use of anticoagulant (Chronic 02/10/14) Medical History Abscess (10/03/14) Epidural abscess L5-S1 Acute deep vein thrombosis of right upper extremity Acute superficial venous thrombosis of right lower extremity Allergies Seasonal Start Claritin or Dyan once daily Anemia H/O Arthritis of carpometacarpal joint Atrophic vaginitis Cellulitis and abscess of trunk (07/21/14) Abdominal wall abcess Chest pain Like someone standing on lower chest CHF (congestive heart failure) HFpEF Colon ulcer (09/02/2014-Arvind) Cough Worse at nighttime Cystocele Deep vein thrombosis Multiple episodes Depression Discitis L5-S1 discitis and abscess. Resolved. Diverticulosis of colon DJD (degenerative joint disease) (01/05/14-Dr Pérez) Bilateral knees, Left wrist DVT (deep venous thrombosis) 09/2013 Right Postoperative Dysphagia feels like something sticks at the level of the sternal notch Exposure to TB (01/06/14-Dr Sullivan) Gallstones without obstruction of gallbladder (03/05/14-Dr Weber) GI bleed H/O. Remote. Headache Hematoma Right rectus abdominus Hematuria, gross Hernia, ventral Massive. No surgery. Reeducated on calling ambulance for acute severe pain or inability to pass gas or stool Recommend MiraLAX half a dose daily to keep stools soft and regular Increase fluid intake She also takes Colace daily Hypertension, essential Insomnia Joint pain (01/06/14-Dr Sullivan)Lower leg Knee pain (01/17/13) Status post total knee arthroplasty and revision arthroplasty. X-ray suggests the tibial component has loosened. 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 Discitis. 09/19/14. Now likely resolved. Osteopenia Mild, T score -1.1 at left femoral neck. Continue vitamin D3, calcium, and daily weightbearing exercise. Other female genital prolapse (01/06/14-Dr Sullivan) Pelvic relaxation (09/29/14) Poor short-term memory Pulmonary emboli Remote Radial styloid tenosynovitis of left hand DeQuervain's Rash, skin Forearms Rectal prolapse (01/06/14-Dr Sullivan) Rectocele Recurrent urinary tract infection D-mannose daily has been very helpful Seasonal allergies Continue loratadine once daily Septicemia (10/03/14) Bacteroides fragilis 2014 Shortness of breath Skin ulcer Abdominal postop ulcer Squamous cell carcinoma of skin (01/06/14-Dr Sullivan) Trochanteric bursitis of right hip (12/05/13) Urinary incontinence Urinary tract bacterial infections H/O recurring Urticaria UTI (urinary tract infection) recurring Vaginal vault prolapse Surgical History Abnormal findings on esophagogastroduodenoscopy (EGD) 09/05/16-Schatzki ring & mild gastritis H/O colectomy for diverticular disease-sigmoid H/O colonoscopy (09/02/14) 09/02/2014-retention suture mid sigmoid colon removed 2011-HP/hemorrhoids Dr Villela H/O colostomy and reanastomosis For diverticular disease H/O hernia repair H/O knee surgery 2010 revision of right H/O laminectomy (10/03/14) L5-S1 laminectomy and drainage of epidural abscess H/O left breast biopsy H/O sigmoidoscopy (09/02/14) H/O: hysterectomy History of knee replacement procedure of right knee History of left knee replacement Hx of tonsillectomy Status post incision and drainage (10/18/13) Abcess 10/18/13 & 10/28/13 Status post surgery 09/2013 Wound infection Status post surgery (10/01/13) Colporrhaphy Posterior colporrhaphy and colposacropexy Status post surgical removal of malignant neoplasm of skin lower lip/SC Family History Sister Malignant neoplasm of breast Malignant neoplasm of colon Deep vein thrombosis of blood clot Malignant neoplasm of lung lung CA Mother Malignant neoplasm of colon Brother Malignant neoplasm of esophagus Leukemia Malignant neoplasm of lung brother had Black Lung disease Father Malignant neoplasm of lung father had "sleeping sickness" Social History household members: spouse housing: house lives independently: Yes marital status: education level: high school occupational status: retired other: Children-4 Grandchildren- smoking status: Former smoker alcohol intake frequency: does not drink substance use type: does not use MEDS/ALLERGIES Home Medications and Allergies Home Medications Medication Instructions Recorded Confirmed Type cholecalciferol (vitamin D3) 50 2,000 unit PO QDAY 08/29/15 09/02/21 History mcg (2,000 unit) capsule cyanocobalamin (vitamin B-12) 1,000 mcg PO QDAY #30 tab 02/09/16 09/02/21 Rx 1,000 mcg tablet (Vitamin B-12) escitalopram oxalate 20 mg tablet 20 mg PO QDAY #90 tab 09/25/20 09/02/21 Rx furosemide 20 mg tablet 20 mg PO QDAY #90 tab 10/24/20 09/02/21 Rx potassium chloride 10 mEq 10 meq PO QDAY #90 cap 10/24/20 09/02/21 Rx capsule,extended release bisoprolol 2.5 2 tab PO QDAY #180 tab 04/02/21 09/02/21 Rx mg-hydrochlorothiazide 6.25 mg tablet amitriptyline 25 mg tablet 25 mg PO QHS #90 tab 05/15/21 09/02/21 Rx propranolol 60 mg tablet 60 mg PO QDAY #90 tab 07/23/21 09/02/21 Rx warfarin 5 mg tablet See Rx Instructions .ROUTE 07/23/21 09/02/21 Rx .COMPLEX #100 tab d-mannose 500 mg capsule mg PO 08/27/21 08/27/21 History Allergies Allergy/AdvReac Type Severity Reaction Status Date / Time Sulfa (Sulfonamide AdvReac Intermediate sulfa rash Verified 08/27/21 09:11 Antibiotics) tape Allergy Severe Blister Uncoded 08/27/21 09:11 Physical Examination Vital Signs Vital signs: Temp Pulse Resp BP Pulse Ox 97.3 F 75 19 130/73 92 09/03/21 16:00 09/03/21 16:00 09/03/21 16:00 09/03/21 16:00 09/03/21 16:00 General physical appearance General physical exam: well developed, well nourished, no distress, no pain and obese Eyes Eye exam: PERRL and normal ocular movement ENT ENT exam: decreased hearing Head Head exam IM: Present atraumatic, normal inspection and normocephalic Neck Neck exam: no masses, no bruits, trachea midline, no lymphadenopathy and no venous distension Cardiovascular Cardiovascular exam IM: Present normal rate and rhythm, RRR, +S1 and +S2; Absent JVD Respiratory Respiratory exam: normal expansion, normal respiratory effort and clear to auscultation Abdomen Abdomen: Present soft and bowel sounds; Absent tender (no tenderness to palpation) or organomegaly Hernia: Present incisional (Large lower abdominal incisional hernia with soft viscera palpable in the lower aspect; easily reducible) Integumentary Integumentary: Present no rash, no growths and no abnormal pigmentation Neurologic Neurologic: Present normal coordination and normal sensation Musculoskeletal Musculoskeletal: Present normal gait and normal posture Psychiatric Psychiatric: Present oriented to time, oriented to person, oriented to place, speech is normal, memory intact and other Results Labs Result diagrams: 09/03/21 05:06 09/03/21 05:06 Labs: Abnormal lab results 09/02/21 09/02/21 09/02/21 Range/Units 18:02 18:02 18:35 MPV 10.8 H (7.4-10.4) fL Lymph % (Auto) 14.0 L (15.5-49.0) % Bent % (Auto) (1.0-12.0) % Bent # (Auto) 1.14 H (0.10-0.90) K/mcL Absolute Neutrophils 8.12 H (1.80-8.00) K/mcL Chloride 95 L (96-108) mmol/L Glucose 124 H (70-105) mg/dL Urine Appearance Hazy A (Clear) Urine Urobilinogen 2.0 A mg/dL Ur Leukocyte Esterase 25 A (Negative) /uL Ur Squamous Epith Cells 5 H (0-4) /hpf Urine Mucus Few A (None) /hpf 09/03/21 09/03/21 Range/Units 05:06 05:06 MPV 11.3 H (7.4-10.4) fL Lymph % (Auto) (15.5-49.0) % Bent % (Auto) 17.0 H (1.0-12.0) % Bent # (Auto) 1.21 H (0.10-0.90) K/mcL Absolute Neutrophils (1.80-8.00) K/mcL Chloride (96-108) mmol/L Glucose 121 H (70-105) mg/dL Urine Appearance (Clear) Urine Urobilinogen mg/dL Ur Leukocyte Esterase (Negative) /uL Ur Squamous Epith Cells (0-4) /hpf Urine Mucus (None) /hpf Diabetes panel 09/02/21 09/03/21 Range/Units 18:02 05:06 Sodium 136 136 (133-145) mmol/L Potassium 3.7 3.5 (3.3-5.1) mmol/L Chloride 95 L 98 (96-108) mmol/L Carbon Dioxide 28 29 (22-30) mmol/L BUN 15 18 (8-23) mg/dL Creatinine 0.9 0.8 (0.6-1.1) mg/dL Glucose 124 H 121 H (70-105) mg/dL Calcium 9.6 8.6 (8.6-10.4) mg/dL AST 21 (<32) U/L ALT 17 (<40) U/L Alkaline Phosphatase 50 (39-117) U/L Total Protein 7.2 (5.9-8.4) gm/dL Albumin 4.1 (3.2-5.2) gm/dL Calcium panel 09/02/21 09/03/21 Range/Units 18:02 05:06 Calcium 9.6 8.6 (8.6-10.4) mg/dL Albumin 4.1 (3.2-5.2) gm/dL Pituitary panel 09/02/21 09/03/21 Range/Units 18:02 05:06 Sodium 136 136 (133-145) mmol/L Potassium 3.7 3.5 (3.3-5.1) mmol/L Chloride 95 L 98 (96-108) mmol/L Carbon Dioxide 28 29 (22-30) mmol/L BUN 15 18 (8-23) mg/dL Creatinine 0.9 0.8 (0.6-1.1) mg/dL Glucose 124 H 121 H (70-105) mg/dL Calcium 9.6 8.6 (8.6-10.4) mg/dL Adrenal panel 09/02/21 09/03/21 Range/Units 18:02 05:06 Sodium 136 136 (133-145) mmol/L Potassium 3.7 3.5 (3.3-5.1) mmol/L Chloride 95 L 98 (96-108) mmol/L Carbon Dioxide 28 29 (22-30) mmol/L BUN 15 18 (8-23) mg/dL Creatinine 0.9 0.8 (0.6-1.1) mg/dL Glucose 124 H 121 H (70-105) mg/dL Calcium 9.6 8.6 (8.6-10.4) mg/dL Total Bilirubin 0.5 (0.1-1.0) mg/dL AST 21 (<32) U/L ALT 17 (<40) U/L Alkaline Phosphatase 50 (39-117) U/L Total Protein 7.2 (5.9-8.4) gm/dL Albumin 4.1 (3.2-5.2) gm/dL All other labs normal. A/P Assessment and plan (1) Partial small bowel obstruction: Status: Acute (2) Incarcerated hernia: Status: Acute (3) Supratherapeutic INR: Status: Acute Comment: Hold Coumadin for the next 3 nights Then resume Coumadin dosing at a slightly lower dose of 5 mg Friday and Friday, and 2.5 mg the other 5 days of the week Return to clinic for repeat INR Friday01/01/21 (4) Depression: Status: Chronic Qualifiers: Depression Type: unspecified Qualified Code(s): F32.9 - Major depressive disorder, single episode, unspecified (5) Deep vein thrombosis: Status: Chronic Comment: Multiple episodes Qualifiers: DVT location: lower extremity Affected thrombotic vein of extremity: unspecified vein of extremity Laterality: unspecified laterality Chronicity: chronic Qualified Code(s): I82.509 - Chronic embolism and thrombosis of unspecified deep veins of unspecified lower extremity (6) Obesity: Status: Chronic Comment: BMI=42.6 Qualifiers: Obesity type: due to excess calories Obesity classification: adult class 3 (BMI >= 40) Serious obesity comorbidity presence: with serious comorbidity Body mass index: BMI 40.0-44.9 Qualified Code(s): E66.09 - Other obesity due to excess calories (7) Hypertension, essential: Status: Chronic (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 She is now passing flatus and has less discomfort. Discussed with her the need to proceed with small bowel follow-through. If this shows adequate transit through the small bowel then no intervention will be needed. I will continue to follow her through this process. Time Spent With Patient Time: Total time spent is greater than 50% in coordination of care (as documented) at patient's floor/unit and/or counseling patient:
[2021-09-03] MEDS ORDERED: ONDANSETRON 4 MG/2 ML VIAL IV ONE (16:21)
[2021-09-03] MEDS ORDERED: DIATRIZOATE MEGLU/DIATRIZO SOD 120 ML BOTTLE PO ONE (17:10)
--- NOTE | 2021-09-03 17:29 | XRay Report ---
CLINICAL INFORMATION: High-grade small bowel obstruction due to adhesions or strictures within a hernia sac. TECHNIQUE: Water-soluble contrast was infused through indwelling NG tube and serial imaging was performed over two hours COMPARISON: Abdomen and pelvic CT 09/02/2021 FINDINGS: The stomach, duodenum and jejunum are moderately dilated to the level of the strictures in the mid small bowel at the level of the hernia sacs. The distal small bowel is decompressed. Small bowel transit time is markedly prolonged approximately two hours. IMPRESSION: High-grade partial small bowel obstruction due to adhesions or strictures within small bowel loops incidentally located within it broad mouthed hernia sac. Small bowel transit time approximately two hours Interpreted and Authenticated by: James Zabala 09/03/21
[2021-09-03] MEDS: SENNOSIDES 1 TABLET PO SCH (20:13)
[2021-09-04] MEDS: 0.9 % SODIUM CHLORIDE 1,000 ML IV SCH ×2 (04:15→13:57)
[2021-09-04] MEDS: 0.9 % SODIUM CHLORIDE 10 ML SYRINGE IV SCH (04:15)
--- NOTE | 2021-09-04 06:30 | Internal Med Progress Note ---
SUBJECTIVE Subjective Patient information: Note initiated : 09/04/21 at 6:27 am Service Date, if different from initiated Date: [] Patient: Maisha Mooney 76 y/o F admitted on 09/02/21 for abdominal pain. Chief Complaint: [Abdominal pain] Principal diagnosis: Abdominal pain Interval history: The patient is resting comfortably in bed and denies abdominal pain, nausea or vomiting at this time. NGT remains in place. Constitutional Vitals: Vital Signs Temp Pulse Resp BP Pulse Ox 97.1 F 77 22 148/59 92 09/04/21 04:27 09/04/21 04:27 09/04/21 04:27 09/04/21 04:27 09/04/21 04:27 Period Temp Pulse Resp BP Sys/Kaba Pulse Ox Last 24 Hr 97.0 F-98.1 F 68-83 17-24 130-160/59-78 91-92 Intake and Output 09/03/21 09/04/21 09/04/21 21:59 05:59 13:59 Intake Total 1000 807 Output Total 1540 500 Balance -540 307 Weight 115.258 kg Intake & Output: Intake & Output 09/03/21 09/04/21 09/04/21 21:59 05:59 13:59 Intake Total 1000 807 Output Total 1540 500 Balance -540 307 Weight 115.258 kg Intake: IV 1000 807 Sodium Chloride 0.9% 1,000 ml @ 1000 807 100 mls/hr IV .Q10H [facility] Rx#: [id number] Oral 0 Tube Feeding 0 Output: Gastric Drainage 540 100 Left Nare NG/OG 540 100 Urine Catheter Amount 450 Urine/Stool Mix 200 Stool 400 200 Emesis 150 Other: Urine Appearance Clear Clear Urine Color Light Peace Urine Odor Normal Stool Size Small Small Stool Color Brown Brown Stool Consistency Formed Formed # Bowel Movements 2 1 # of times incontinent of 1 Bowels Head Head exam: Present atraumatic and normal inspection Eye Eye exam: Present normal appearance ENT ENT exam: Present mucous membranes moist, normal exam and normal external ear exam Neck Neck exam: Present normal inspection Respiratory Respiratory exam: Present normal respiratory exam Cardiovascular Cardiovascular exam: Present normal rate and rhythm GI/Abdominal GI/Abdominal exam: Present soft, diminished bowel sounds and distended; Absent guarding or tenderness Back Exam Back exam: Present normal inspection Neurological Exam Neurological exam: Present alert and oriented X3 Skin Skin exam: Present intact and warm OBJ DATA Labs CBC & Chem 7: 09/03/21 05:06 09/03/21 05:06 Labs: Abnormal Lab Results 09/03/21 09/03/21 09/02/21 05:06 05:06 18:35 MPV 11.3 H Lymph % (Auto) Curry % (Auto) 17.0 H Curry # (Auto) 1.21 H Absolute Neutrophils Chloride Glucose 121 H Urine Appearance Hazy A Urine Urobilinogen 2.0 A Ur Leukocyte Esterase 25 A Ur Squamous Epith Cells 5 H Urine Mucus Few A 09/02/21 09/02/21 18:02 18:02 MPV 10.8 H Lymph % (Auto) 14.0 L Curry % (Auto) Curry # (Auto) 1.14 H Absolute Neutrophils 8.12 H Chloride 95 L Glucose 124 H Urine Appearance Urine Urobilinogen Ur Leukocyte Esterase Ur Squamous Epith Cells Urine Mucus Meds: Medications Docusate Sodium (Docusate Sodium 100 Mg Capsule) 100 mg PO BID [facility] Last Admin: 09/03/21 20:13 Dose: Not Given Documented by: Enoxaparin Sodium (Enoxaparin 100 Mg/Ml Syringe) 100 mg SQ BID [facility] Last Admin: 09/03/21 20:12 Dose: 100 mg Documented by: Sodium Chloride (Sodium Chloride 0.9%) 1,000 mls @ 100 mls/hr IV .Q10H [facility] Last Admin: 09/04/21 04:15 Dose: 100 mls/hr Documented by: Morphine Sulfate (Morphine 4 Mg/Ml Vial) 2 mg IV Q4HP PRN; Protocol PRN Reason: Per Pain Protocol Ondansetron HCl (Ondansetron 4 Mg/2 Ml Vial) 4 mg IV Q6HP PRN PRN Reason: Nausea And Vomiting Last Admin: 09/03/21 14:14 Dose: 4 mg Documented by: Senna (Sennosides 1 Tablet) 2 tab PO HS [facility] Last Admin: 09/03/21 20:13 Dose: Not Given Documented by: Sodium Chloride (0.9 % Sodium Chloride 10 Ml Syringe) 10 ml IV Q8 [facility] Last Admin: 09/04/21 04:15 Dose: Not Given Documented by: A/P Assessment and plan (1) Incarcerated hernia: Status: Acute (2) SBO (small bowel obstruction): Status: Acute (3) CHF (congestive heart failure): Status: Chronic Comment: HFpEF Qualifiers: Heart failure type: unspecified Heart failure chronicity: unspecified Qualified Code(s): I50.9 - Heart failure, unspecified (4) Vaginal erosion due to surgical mesh: Status: Resolved Comment: Recent repair at [facility] Qualifiers: Encounter type: subsequent encounter Qualified Code(s): T83.711D - Erosion of implanted vaginal mesh to surrounding organ or tissue, subsequent encounter (5) Obesity: Status: Chronic Comment: BMI=42.6 Qualifiers: Obesity type: due to excess calories Obesity classification: adult class 3 (BMI >= 40) Serious obesity comorbidity presence: with serious comorbidity Body mass index: BMI 40.0-44.9 Qualified Code(s): E66.09 - Other obesity due to excess calories (6) Hypertension, essential: Status: Chronic Narrative A/P Narrative: #Hx of VTE -Hold home coumadin, and start lovenox 1mg/kg/bid SC #HTN -Will hold home lasix, isoprolol-HCTZ, and propranolol #SBO -gastrograffin challenge failed: high grade obstruction 2/2 adensions ?adesiolysis -mx as per genSx #FEN -NS 100cc/h, monitor and replete lytes, NPO #DVT ppx -therapeutic dosing LMWH #Full code Time Spent With Patient Time: Total time spent is greater than 50% in coordination of care (as documented) at patient's floor/unit and/or counseling patient: Total time spent with greater than 50% in coordination of care (as documented) at patient's floor/unit and/or counseling patient:: 25 - 35 minutes QUALITY Stroke Symptom Onset Unknown: No VTE Deep Vein Thrombosis/Pulmonary Embolism Present on Admission: No
--- NOTE | 2021-09-04 06:43 | XRay Report ---
CLINICAL INFORMATION: Follow-up Small bowel obstruction COMPARISON: Small bowel follow-through exam 09/03/2021. FINDINGS: NG tube has been advanced-the tip is now in the gastric fundus. Stomach and small bowel are now decompressed with modest contrast seen within the colon. No free air. IMPRESSION: Interval resolution of small bowel obstruction pattern. Interpreted and Authenticated by: James Zabala 09/04/21
[2021-09-04] MEDS: DOCUSATE SODIUM 100 MG CAPSULE PO SCH (08:34)
[2021-09-04] MEDS: ENOXAPARIN 100 MG/ML SYRINGE SQ SCH (08:34)
--- NOTE | 2021-09-04 12:57 | General Surgery Progress Note ---
SUBJECTIVE Subjective Patient information: Note initiated : 09/04/21 at 12:52 pm Service Date, if different from initiated Date: [] Patient: Maisha Mooney 76 y/o F admitted on 09/02/21 for abdominal pain. Chief Complaint: [] Principal diagnosis: Abdominal pain Interval history: Patient continues to do well. She had multiple bowel movements last evening and some this morning. She denies nausea. Her abdominal discomfort has resolved. Abdominal x-rays shows resolution of small bowel distention with no evidence of obstruction. Constitutional Vitals: Vital Signs Temp Pulse Resp BP Pulse Ox 97.8 F 89 16 155/82 95 09/04/21 11:43 09/04/21 11:43 09/04/21 11:43 09/04/21 11:43 09/04/21 11:43 Period Temp Pulse Resp BP Sys/Kaba Pulse Ox Last 24 Hr 97.0 F-98.1 F 72-89 14-24 130-169/59-82 91-95 Intake and Output 09/03/21 09/04/21 09/04/21 21:59 05:59 13:59 Intake Total 1000 807 0 Output Total 1540 500 100 Balance -540 307 -100 Weight 254 lb 1.6 oz Intake & Output: Intake & Output 09/03/21 09/04/21 09/04/21 21:59 05:59 13:59 Intake Total 1000 807 0 Output Total 1540 500 100 Balance -540 307 -100 Weight 254 lb 1.6 oz Intake: IV 1000 807 Sodium Chloride 0.9% 1,000 ml @ 1000 807 100 mls/hr IV .Q10H [facility] Rx#: [id number] Oral 0 Tube Feeding 0 0 Output: Gastric Drainage 540 100 Left Nare NG/OG 540 100 Urine Catheter Amount 450 Urine/Stool Mix 200 100 Stool 400 200 Emesis 150 Other: Urine Appearance Clear Clear Urine Color Light [place] Urine Odor Normal Stool Size Small Small Small Stool Color Brown Brown Brown Stool Consistency Formed Formed Liquid # Bowel Movements 2 1 1 # of times incontinent of 1 Bowels ENT ENT exam: Present normal oropharynx Neck Neck exam: Present full ROM and normal inspection Respiratory Respiratory exam: Present normal respiratory exam and CTAB Cardiovascular Cardiovascular exam: Present normal rate and rhythm, RRR, +S1 and +S2; Absent JVD GI/Abdominal GI/Abdominal exam: Present normal bowel sounds, soft and distended (Mild distention but abdominal exam is soft and benign) Extremities Exam Extremities exam: Present full ROM and neurovascular intact Neurological Exam Neurological exam: Present alert and oriented X3; Absent motor sensory deficit Psychiatric Psychiatric exam: Present normal affect and normal mood A/P Assessment and plan (1) Incarcerated hernia: Status: Acute (2) SBO (small bowel obstruction): Status: Acute Plan Patient is clinically improved. She will be given full liquid diet and if she tolerates it she will be discharged home. Time Spent With Patient Time: Total time spent is greater than 50% in coordination of care (as documented) at patient's floor/unit and/or counseling patient:
--- NOTE | 2021-09-04 15:16 | Discharge Summary ---
Discharge Provider Provider Patient information: Note initiated : 09/04/21 at 3:08 pm Service Date, if different from initiated Date: [] Patient: Maisha Mooney 76 y/o F admitted on 09/02/21 for abdominal pain. Chief Complaint: [] Date of admission: 09/02/21 21:20 Discharge date: 09/04/21 Primary care physician: James Roberts DO Admitting clinician: Israel Singh Attending physician on admission: Israel Singh Consults: 09/02/21 Consult to Physician [CONS] Stat Comment: Consulting Provider: Karla Groves Reason For Exam: Physician to Consult Consult to Physician [CONS] Stat Comment: Consulting Provider: Israel Singh Reason For Exam: Physician to Consult Attending physician on discharge: Israel Singh Discharging clinician: Israel Singh COURSE Hospital Course Hospital course: 76-year-old female was admitted with partial small bowel obstruction. She presented with a 4-day history of crampy abdominal pain followed by nausea and vomiting. She had CT evidence of 2 large wide neck incisional hernias with 2 areas of obstruction outside of the hernia sac. The patient had regular bowel movement on the day prior to admission and she had a small amount of flatus on the day of admission. She was admitted and started on nasogastric suction which relieved her symptoms. She then had a small bowel follow-through which showed transit through the small bowel into the colon. She has had multiple bowel movements and her small bowel is now totally decompressed. Patient has tolerate d full liquid diet without nausea and is stable for discharge home. She is advised to continue taking all of her medications as she did prior to admission including her warfarin. Discharge diagnosis: Small bowel obstruction due to adhesions Secondary discharge diagnosis: Incisional hernia History of DVT Hypertension Chronic anticoagulant therapy Reason for admission: Small bowel obstruction Procedures: None Pertinent studies/significant findings: Gastrografin small bowel follow-through Complications: None Time Spent with Patient Time attestation: Total time spent providing and/or coordinating discharge services: Physical Examination Vital Signs Vital signs: Temp Pulse Resp BP Pulse Ox 97.8 F 89 16 155/82 95 09/04/21 11:43 09/04/21 11:43 09/04/21 11:43 09/04/21 11:43 09/04/21 11:43 Eyes Eye exam: PERRL and normal ocular movement ENT ENT exam: normal nares and normal mucosa Head Head exam IM: Present atraumatic, normal inspection and normocephalic Neck Neck exam: no masses, no bruits, trachea midline and no lymphadenopathy Cardiovascular Cardiovascular exam IM: Present normal rate and rhythm, RRR, +S1 and +S2; Absent JVD Respiratory Respiratory exam: normal expansion, normal respiratory effort and clear to auscultation Abdomen Abdomen: Present soft, non tender and distended Integumentary Integumentary: Present no rash, no growths and no abnormal pigmentation Neurologic Neurologic: Present normal coordination and normal sensation Psychiatric Psychiatric: Present oriented to time, oriented to person, oriented to place, speech is normal, memory intact and other Discharge Plan Patient/Caregiver Discharge Instructions Activity: increase activity as tolerated Diet: Low Fiber Prescriptions: No Action escitalopram oxalate 20 mg tablet 20 mg PO QDAY Qty: 90 3RF bisoprolol-hydrochlorothiazide 2.5-6.25 mg tablet 2 tab PO QDAY Qty: 180 3RF amitriptyline 25 mg tablet 25 mg PO QHS Qty: 90 2RF propranolol 60 mg tablet 60 mg PO QDAY Qty: 90 3RF warfarin 5 mg tablet See Rx Instructions mg .ROUTE .COMPLEX Qty: 100 3RF Hold Instructions: Doctor's Order Protocol: Dose Management Condition: Friday Dose/Route: 5 mg Instruction: 1 x 5 mg tablet Condition: Friday Dose/Route: 2.5 mg Instruction: 0.5 x 5 mg tablets Condition: Friday Dose/Route: 2.5 mg Instruction: 0.5 x 5 mg tablets Condition: Friday Dose/Route: 5 mg Instruction: 1 x 5 mg tablet Condition: Dose/Route: 2.5 mg Instruction: 0.5 x 5 mg tablets Condition: Friday Dose/Route: 2.5 mg Instruction: 0.5 x 5 mg tablets Condition: Friday Dose/Route: 2.5 mg Instruction: 0.5 x 5 mg tablets Protocol Text: Adjustment Start Date: Friday08/27/21 INR Value: 1.6 INR Date: 08/27/21 Recheck Date: 09/10/21 Dose Instruction: Take 1 tablet by mouth Mondays and and 0.5 tablet by mouth the other 5 days of the week Rx Instructions: Take 5mg Friday/Friday. Take 2.5mg x remaining 5 days a week. cholecalciferol (vitamin D3) 2,000 unit capsule 2,000 unit PO QDAY 0RF cyanocobalamin (vitamin B-12) [Vitamin B-12] 1,000 mcg tablet 1,000 mcg PO QDAY Qty: 30 0RF d-mannose 500 mg capsule PO 0RF potassium chloride 10 mEq capsule, extended release 10 meq PO QDAY Qty: 90 3RF furosemide 20 mg tablet 20 mg PO QDAY Qty: 90 3RF Follow Up Plan Follow up with: James Roberts DO [Primary Care Provider] - Patient Disposition: Home, Self-Care Prognosis: Good Rehab Potential: Good I certify that the patient requires SNF services: No Overall status at discharge: patient is back to baseline Discharge Orders: Discharge Order (Routine); Ordered 09/04/21 Ordered By: Israel Singh Pending Pending Pending: Resuscitation Status Resuscitate (Full Code) Diet Full Liquid Diet Start FriSeptember 04 1034 Docusate Sodium (Docusate Sodium 100 Mg Capsule) 100 mg PO BID [facility] Admin: 09/04/21 08:34 Dose: Not Given Documented by: Admin: 09/03/21 20:13 Dose: Not Given Documented by: Admin: 09/03/21 08:32 Dose: Not Given Documented by: Admin: 09/02/21 23:50 Dose: Not Given Documented by: BOO Enoxaparin Sodium (Enoxaparin 100 Mg/Ml Syringe) 100 mg SQ BID [facility] Last Admin: 09/04/21 08:34 Dose: 100 mg Documented by: Admin: 09/03/21 20:12 Dose: 100 mg Documented by: Admin: 09/03/21 08:37 Dose: 100 mg Documented by: Admin: 09/02/21 23:23 Dose: 100 mg Documented by: BOO Sodium Chloride (Sodium Chloride 0.9%) 1,000 mls @ 100 mls/hr IV .Q10H [facility] Admin: 09/04/21 13:57 Dose: Not Given Documented by: Admin: 09/04/21 04:15 Dose: 100 mls/hr Documented by: Infusion: 09/04/21 04:15 Dose: 100 mls/hr Documented by: Admin: 09/03/21 20:11 Dose: 100 mls/hr Documented by: Infusion: 09/03/21 18:38 Dose: 100 mls/hr Documented by: Admin: 09/03/21 08:38 Dose: 100 mls/hr Documented by: Infusion: 09/03/21 08:38 Dose: 100 mls/hr Documented by: Admin: 09/02/21 23:24 Dose: 100 mls/hr Documented by: BOO Ondansetron HCl (Ondansetron 4 Mg/2 Ml Vial) 4 mg IV Q6HP PRN PRN Reason: Nausea And Vomiting Last Admin: 09/03/21 14:14 Dose: 4 mg Documented by: Admin: 09/02/21 23:45 Dose: 4 mg Documented by: BOO Senna (Sennosides 1 Tablet) 2 tab PO HS [facility] Last Admin: 09/03/21 20:13 Dose: Not Given Documented by: Admin: 09/02/21 23:50 Dose: Not Given Documented by: BOO Sodium Chloride (0.9 % Sodium Chloride 10 Ml Syringe) 10 ml IV Q8 [facility] Last Admin: 09/04/21 04:15 Dose: Not Given Documented by: Admin: 09/03/21 20:13 Dose: Not Given Documented by: Admin: 09/03/21 14:00 Dose: Not Given Documented by: Admin: 09/03/21 04:17 Dose: Not Given Documented by: Admin: 09/02/21 23:50 Dose: Not Given Documented by: BOO Shift Summary 09/04/21 02:31 Shift Summary by Nata Ferrell Primary Diagnosis: Abdominal pain w/ nausea. Registration Status: 09/03 - M/S Date of Surgery (if applicable): Pertinent Medical Hx/Issue(s): Large ventral incisional hernia, DVT & PE (Coumadin), HTN, depression, DJD shoulders, Vital Signs with Trends: VSS on RA. Neuro/Mental Status: A&OX4 Ambulation status : Independent to C d/t IV, NG, & frequent/urgent diarrhea. Diet : NPO PRN Meds : None Lines/Tubes: NS @ 100/hr into RAC. NG @ 60cm to medium intermittent wall suction putting out brown/green. Lab/Rad results: Void / BM: mostly liquid urine/BM mix w/ small to med formed BM at times. Recommendations/questions for MD: Expected date of discharge: TBD Discharge Plan (needs, disposition, etc): to return home when medically cleared. Initialized on 09/04/21 02:31 - END OF NOTE
== END 2021-09-04 16:10 | disposition home or self-care (01) | DRG 394 ==
LOC: ED 16:24 → MEDSUR 21:20
PROVIDERS: ADMIT Student in an Organized Health Care Education/Training Program; ATTEND Student in an Organized Health Care Education/Training Program